=== PATIENT | male | born 1960 | race Caucasian/White ===

== ENCOUNTER 2017-09-20 08:32 | Day surgery (SDC) | payer BC ==
[~2017-09-20] VITALS: Ht 182.9 cm; Wt 104.3 kg
[~2017-09-20 08:32] MED LIST: ADLT ASA LOW81 MG PO; ALTOPREV20 MG PO; ANTIVERT PO; ASPIRIN LOW81 M1 PO; AUGMENTIN875TAB PO; BABY ASPIRIN81 MG OR; CIPROFLOXACN500 MG PO; FLUTICASONE50 MCG; HYDROCODONE/ACE1 TA7 PO; HYDROCODONE/ACE1 TAB PO; LOSARTAN POT50 MG PO; MECLIZINE25 MG PO; METO50TA52 PO; METOPROLOL50 M1 PO; PHENERGAN25 MG/TAB PO; PREDNISONE10 MG PO; ROCEPHIN 1 GM1 GM; SODIUM CHLORIDE; TAM75CAP PO; TAMSULOSIN HCL0.4 MG PO; TESTOST CYP200 MG/ML IM; VALTREX1 GM PO; ZOFRAN ODT4 MG OR
[2017-09-20 11:12] VITALS: BP 119/85
== END 2017-09-20 11:25 | disposition home or self-care (01) | DRG 951 ==
LOC: ENDO 08:32
PROVIDERS: ATTEND Surgery
PROC: 0DJD8ZZ Inspection of Lower Intestinal Tract, Via Natural or Artificial Opening Endoscopic (ICD-10-PCS; principal; 2017-09-20)
DX: Z12.11 Encounter for screening for malignant neoplasm of colon (principal); I10 Essential (primary) hypertension; K64.8 Other hemorrhoids

== ENCOUNTER 2019-02-10 19:56 | Observation (INO) | payer BC ==
[~2019-02-10] VITALS: Ht 182.9 cm; Wt 107.5 kg
--- NOTE | 2019-02-10 20:21 | NUR ---
BY WC TO ROOM
--- NOTE | 2019-02-10 20:22 | NUR ---
PT. WITH C/O RIGHT FLANK PAIN AND RIGHT LQ PAIN STARTING APPROX. 1900 TONIGHT. PT. STATES HE HAS A PMH OF KIDNEY STONES.
[2019-02-10 20:49] LABS: HEMATOCRIT 46.6 % (39.0-50.0); HEMOGLOBIN 15.3 g/dl (14.0-18.0); IMMATURE GRANULOCYTES 0.5 % (0.0-5.0); MEAN CORPUSCULAR HGB 32.8 pG CALC (26.0-32.0); MEAN CORPUSCULAR HGB CONC 32.8 g/L CALC (32.0-36.0); NEUT# 5.71 thou/uL (1.82-7.42); RED BLOOD COUNT 4.67 mill/uL (4.70-6.10); RED CELL DISTRI WIDTH 12.4 % (11.5-15.5)
--- NOTE | 2019-02-10 20:49 | NUR ---
IVF, IV PAIN MED AND IV ANTIEMETIC GIVEN PER MD ORDER.
[2019-02-10 20:51] LABS: MEAN CELL VOLUME 99.8 fL CALC (80.0-100.0)
[2019-02-10 21:04] LABS: URINE BILIRUBIN - DIPSTICK NEGATIVE (NEGATIVE); URINE BLOOD DIPSTICK LARGE (NEGATIVE); URINE COLOR YELLOW; URINE GLUCOSE - DIPSTICK NEGATIVE (NEGATIVE); URINE KETONE NEGATIVE (NEGATIVE); URINE LEUK ESTERASE NEGATIVE (NEGATIVE); URINE NITRITE - DIPSTICK NEGATIVE (Negative); URINE PH 5.5 (4.5-8.0); URINE PROTEIN - DIPSTICK NEGATIVE (NEG-TRACE); URINE SPECIFIC GRAVITY 1.025; URINE UROBILINOGEN - DIPSTICK 0.2 E.U./dL (0.2)
[2019-02-10 21:17] LABS: URINE RBC TNTC RBC/hpf (0-5); URINE SQUAMOUS EPITHELIAL CELL FEW EPI/hpf (0-FEW)
--- NOTE | 2019-02-10 21:25 | NUR ---
PT. STATES HIS PAIN IS NOW DECREASED TO A 4 ON A SCALE OF 1-10.
[2019-02-10 21:28] LABS: ALKALINE PHOSPHATASE 71 u/l (38-126); AMYLASE 117 u/l (30-110); ANION GAP 15 (6-22 (CALC)); BILIRUBIN, TOTAL 0.6 mg/dL (0.0-1.4); BUN 25 mg/dL (9-20); BUN/CREATININE RATIO 18 (12-20 (CALC)); CARBON DIOXIDE 26 mmol/l (22-30); CHLORIDE 106 mmol/l (95-108); CREATININE 1.4 mg/dL (0.7-1.3); GFR 52 ML/MIN (>=60 (CALC)); GFR FOR AFR.AMER. > 60 ML/MIN (>=60 (CALC)); LIPASE 326 u/l (23-300); SGOT/AST 29 u/l (17-59); SODIUM 142 mmol/l (137-146); TOTAL PROTEIN 7.8 g/dL (6.3-8.2)
[2019-02-10] MEDS ORDERED: GABAPENTIN100 MG PO (21:28)
[2019-02-10 21:30] LABS: ALBUMIN 4.6 g/dL (3.2-5.0)
--- NOTE | 2019-02-10 22:37 | NUR ---
MD IN ROOM TO DISCUSS CLINICAL FINDINGS WITH PT. AND ALSO TO MAKE HIM AWARE OF ADMISSION, VERBALIZED UNDERSTANDING.
--- NOTE | 2019-02-10 22:49 | NUR ---
IV PAIN MED GIVEN PER MD ORDER.
--- NOTE | 2019-02-10 23:02 | NUR ---
PT. STATES HIS PAIN HAS NOW DECREASED TO A 3 ON A SCALE OF 1-10.
--- NOTE | 2019-02-10 23:14 | NUR ---
PT. BP 139/97 MD AWARE.
--- NOTE | 2019-02-10 23:41 | NUR ---
REPORT TO TROY SALAZAR.
--- NOTE | 2019-02-10 23:45 | NUR ---
TROY DOING BEDSIDE ADMISSION. REPORT GIVEN.
[2019-02-10 23:57] VITALS: BP 132/92
--- NOTE | 2019-02-11 | NUR ---
ARRIVED TO THE FLOOR VIA STRECTHER ACCOMPANIED BY AND MARTIN SIMMONS. ADMISSION ASSESSMENT COMPLETED BY MARTIN SIMMONS. PT. A/A/O AND ABLE TO VERBALIZE NEEDS; UPDATED ON POC AND VERBALIZES UNDERSTANDING. IV SITE PATENT AND INFUSING ORDERED IVF WELL. PT. REPORTS OCCASIONAL ALCOHOL CONSUMPTION, NOT DAILY, BUT APPROXIMATELY 6 PACK A WEEK. REPORTS INTERMITTENT RLQ PAIN AND EDUCATED ON PRN MORPHINE ORDERS AND VERBALIZES UNDERSTANDING. EDUCATED ON USE OF CALL LIGHT AND ROOM. ENCOURAGED TO CALL FOR ANY NEEDS. CALL LIGHT IS IN REACH. WILL CONTINUE TO MONITOR.
--- NOTE | 2019-02-11 00:04 | NUR ---
PT[place] [facility] [place] NO [place]
--- NOTE | 2019-02-11 02:36 | NUR ---
PT. C/O RIGHT FLANK PAIN AND NAUSEA; MEDICATED WITH ORDERED PRN PEPCID,ZOFRAN, AND MORPHINE; WILL REASSESS. EMESIS BAG PROVIDED. DENIES FURTHER NEEDS. CALL LIGHT IS IN REACH.
[2019-02-11 03:11] LABS: HEMATOCRIT 42.1 % (39.0-50.0); HEMOGLOBIN 14.1 g/dl (14.0-18.0); IMMATURE GRANULOCYTES 0.4 % (0.0-5.0); MEAN CELL VOLUME 99.8 fL CALC (80.0-100.0); MEAN CORPUSCULAR HGB 33.4 pG CALC (26.0-32.0); MEAN CORPUSCULAR HGB CONC 33.5 g/L CALC (32.0-36.0); NEUT# 5.34 thou/uL (1.82-7.42); RED BLOOD COUNT 4.22 mill/uL (4.70-6.10); RED CELL DISTRI WIDTH 12.4 % (11.5-15.5)
[2019-02-11 03:24] VITALS: BP 126/87
--- NOTE | 2019-02-11 03:24 | NUR ---
REASSESSED PAIN AND NOW DOWN TO A 3/10;VSS; DENIES NEEDS.VOICES NO CONCERNS. CALL LIGHT IS IN REACH. WILL CONTINUE TO MONITOR.
[2019-02-11 03:34] LABS: ALBUMIN 3.9 g/dL (3.2-5.0); ALKALINE PHOSPHATASE 77 u/l (38-126); ANION GAP 13 (6-22 (CALC)); BILIRUBIN, TOTAL 0.5 mg/dL (0.0-1.4); BUN 22 mg/dL (9-20); BUN/CREATININE RATIO 18 (12-20 (CALC)); CARBON DIOXIDE 25 mmol/l (22-30); CHLORIDE 106 mmol/l (95-108); CREATININE 1.2 mg/dL (0.7-1.3); GFR > 60 ML/MIN (>=60 (CALC)); GFR FOR AFR.AMER. > 60 ML/MIN (>=60 (CALC)); POTASSIUM 4.4 mmol/l (3.5-5.1); SGOT/AST 24 u/l (17-59); SODIUM 140 mmol/l (137-146); TOTAL PROTEIN 6.7 g/dL (6.3-8.2)
--- NOTE | 2019-02-11 06:39 | NUR ---
C/O RIGHT SIDED ABD PAIN 4/10 AND MEDICATED WITH ORDERED PRN MORPHINE. CALL LIGHT IS IN REACH.
[2019-02-11 08:05] VITALS: BP 121/83
--- NOTE | 2019-02-11 08:15 | NUR ---
ASSESSMENT DONE. PT IS A&O X3. IVF INFUSING WELL. PT NPO. PT STATED PAIN IN ABD 08/01 BUT DENIES PAIN MEDICATION AT THIS TIME. PT DENIES ANY NEEDS AT THIS TIME. CALL LIGHT IN REACH.
[2019-02-11 10:58] LABS: MAGNESIUM 1.9 mg/dL (1.6-2.3)
--- NOTE | 2019-02-11 11:07 | NUR ---
MEDICATED PT WITH MORPHINE FOR PAIN IN ABD SEE EMAR. IN ROOM. PT DENIES ANY OTHER NEEDS AT THIS TIME. CALL LIGHT IN REACH.
--- NOTE | 2019-02-11 15:48 | NUR ---
PT IS SITTING IN THE SIDE OF THE BED. IN ROOM. PT STATED PAIN IN ABD. MEDICATTED PT WITH MORPHINE SEE EMAR. PT STATED EARLIER HE WAS SWEATING A LOT. TOLD PT IF IT HAPPENS AGAIN TO LET ME KNOW. PT DENIES ANY OTHER NEEDS AT THIS TIME. MANAS LIGHT IN REACH.
[2019-02-11 16:40] VITALS: BP 119/79
--- NOTE | 2019-02-11 18:51 | NUR ---
PT C/O NAUSEA , VOMITED THE CHICKEN BROTH. FROM SUPPER . GAVE NAUSEA MEDICATION ORDERED BY DR MOORE.
--- NOTE | 2019-02-11 19:15 | NUR ---
REPORT RECEIVED FROM MARTIN DELEON. PT RESTING IN BED. NO S/S OF DISTRESS AT THIS TIME. WILL CONTINUE TO MONITOR.
[2019-02-11 19:25] VITALS: BP 131/87
--- NOTE | 2019-02-11 20:32 | NUR ---
PT RESTING IN BED, ALERT AND ORIENTED. RES[PIRATIONS EVEN AND UNLABORED ON RA, LUNGS SOUND CLEAR. PEDAL PULSES STRONG. PT REPORTS PAIN OF A 4/10 DENIES WANTING ANYTHING FOR PAIN AT THIS TIME. SAFETY PRECAUTIONS IN PLACE. WILL CONTINUE TO MONITOR.
--- NOTE | 2019-02-12 00:56 | NUR ---
PT RESTING IN BED. NO S/S OF DISTRESS AT THIS TIME. SAFETY PRECAUTIONS IN PLACE. WILL CONTINUE TO MONITOR.
[2019-02-12 04:48] VITALS: BP 140/93
--- NOTE | 2019-02-12 04:49 | NUR ---
PT RESTING IN BED NO S/S OF DISTRESS AT THIS TIME. SAFETY PRECAUTIONS IN PLACE. WILL CONTINUE TO MONITOR.
[2019-02-12 07:23] VITALS: BP 131/91
--- NOTE | 2019-02-12 08:20 | NUR ---
PT IS SITTING IN THE SIDE OF THE BED. PT IS A&O X3 . PT STATED PAIN IN ABD 08/31. PT STATED HE VOMITED IN THE BATHROOM. TOLD PT MEDICATION IS NOT DUE YET. PT VERBALIZED UNDERSTANDING. IVF INFUSING WELL. PT STATED LATER FOR A SHOWER. PT DENIES ANY OTHER NEEDS AT THIS TIME. CALL LIGHT IN REACH.
--- NOTE | 2019-02-12 10:43 | NUR ---
PT IS SITTING IN THE SIDE OF THE BED. PT STATED PAIN MEDICATION NOT HELPING. CALL LIGHT IN REACH. NOTIFIED CELIA BAUMANN.
--- NOTE | 2019-02-12 11:31 | NUR ---
HAD MEDICATED PT WITH TORADOL FOR PAIN IN ABD. PT IS SITTING IN THE SIDE OF THE BED. PT STILL FEELS NAUSEA. MEDICATED PT WITH ZOFRAN. PT DENIES ANY OTHER NEEDS AT THIS TIME. CALL LIGHT IN REACH.
--- NOTE | 2019-02-12 15:19 | NUR ---
PT IS SITTING IN THE SIDE OF THE BED. PT STATED PAIN IN ABD 08/31. MEDICATED PT WITH LORTAB SEE EMAR. IN ROOM. PT DENIES ANY OTHER NEEDS AT THIS TIME. CALL LIGHT IN REACH.
[2019-02-12 15:25] VITALS: BP 133/91
[2019-02-12 19:15] VITALS: BP 140/93
--- NOTE | 2019-02-12 20:00 | NUR ---
PT ASSESSMENT COMPLETED, URINAL EMPTIED OF 400CC CLEAR YELLOW URINE. PT MEDICATED FOR PAIN 5/10 ON PAIN SCALE REPORTED TO RIGHT FLANK SIDE.
--- NOTE | 2019-02-13 00:17 | NUR ---
PT MEDICATED FOR PAIN 4/10 ON PAIN SCALE REPORTED IN THE RIGHT FLANK SIDE. DENIES ANY OTHER NEEDS AT THIS TIME/OTHER THAN GINGERALE/PROVIDED. NO S/O DISTRESS NOTED. CALL LIGHT AT SIDE AND PT ENCOURAGED TO CALL.
--- NOTE | 2019-02-13 00:18 | NUR ---
PT MEDICATED FOR PAIN 4-5/10 ON PAIN SCALE LOCATED IN RIGHT SIDE/FLANK. PROVIDED GINGERALE REQUESTED. PT DENIES NAUSEA OR ANY OTHER NEEDS AT THIS TIME.
[2019-02-13 03:48] VITALS: BP 151/94
[2019-02-13 05:02] LABS: HEMATOCRIT 42.4 % (39.0-50.0); HEMOGLOBIN 13.5 g/dl (14.0-18.0); IMMATURE GRANULOCYTES 0.5 % (0.0-5.0); MEAN CELL VOLUME 102.4 fL CALC (80.0-100.0); MEAN CORPUSCULAR HGB 32.6 pG CALC (26.0-32.0); MEAN CORPUSCULAR HGB CONC 31.8 g/L CALC (32.0-36.0); NEUT# 3.97 thou/uL (1.82-7.42); RED BLOOD COUNT 4.14 mill/uL (4.70-6.10); RED CELL DISTRI WIDTH 12.4 % (11.5-15.5)
[2019-02-13 05:22] LABS: ANION GAP 11 (6-22 (CALC)); BUN 15 mg/dL (9-20); BUN/CREATININE RATIO 11 (12-20 (CALC)); CARBON DIOXIDE 28 mmol/l (22-30); CHLORIDE 105 mmol/l (95-108); CREATININE 1.3 mg/dL (0.7-1.3); GFR 57 ML/MIN (>=60 (CALC)); GFR FOR AFR.AMER. > 60 ML/MIN (>=60 (CALC)); POTASSIUM 4.7 mmol/l (3.5-5.1); SODIUM 139 mmol/l (137-146)
--- NOTE | 2019-02-13 05:45 | NUR ---
PT MEDICATED ORDERS PROVIDE AND FOR PAIN 4-5/10 ON PAIN SCALE REPORTEDLY IN R.FLANK SIDE. PT DENIES ANY OTHER NEEDS AT THIS TIME. POC DISCUSSED/QUESTIONS RE: MEDS/MEAL SCHEDULE. ENCOURAGED PT TO CALL NEEDS ARISE.
--- NOTE | 2019-02-13 07:08 | NUR ---
REPORT RECEIVED FROM MARTIN THOMSON. PT SITTING ON THE SIDE OF THE BED. NO S/S OF DISTRESS AT THIS TIME. WILL CONTIUE TO MONITOR.
[2019-02-13 07:58] VITALS: BP 150/96
--- NOTE | 2019-02-13 08:11 | NUR ---
PT SITTING ON THE SIDE OF THE BED, ALERT AND ORIENTED. RESPIRATIONS EVEN AND UNLABORED ON RA. LUNGS SOUND CLEAR. PEDAL PULSES STRONG. #20 LAC PATENT AND APPEARS HEALTHY. NO S/S OF DISTRESS AT THIS TIME. SAFETY PRECAUTIONS IN PLACE. WILL CONTINUE TO MONITOR.
--- NOTE | 2019-02-13 09:40 | NUR ---
MD AT BEDSIDE DISCUSSING PLAN OF CARE
[2019-02-13 10:13] LABS: URINE BILIRUBIN - DIPSTICK NEGATIVE (NEGATIVE); URINE BLOOD DIPSTICK LARGE (NEGATIVE); URINE COLOR YELLOW; URINE GLUCOSE - DIPSTICK NEGATIVE (NEGATIVE); URINE KETONE NEGATIVE (NEGATIVE); URINE LEUK ESTERASE NEGATIVE (NEGATIVE); URINE NITRITE - DIPSTICK NEGATIVE (Negative); URINE PROTEIN - DIPSTICK NEGATIVE (NEG-TRACE); URINE UROBILINOGEN - DIPSTICK 0.2 E.U./dL (0.2)
[2019-02-13 10:36] LABS: URINE RBC 25-50 RBC/hpf (0-5); URINE WBC 0-2 WBC/hpf (0-5)
--- NOTE | 2019-02-13 12:45 | NUR ---
PT RESTING IN BED NO S/S OF DISTRESS AT THIS TIME. CALL MOORE WITHIN REACH. WILL CONTINUE TO MONITOR.
[2019-02-13 15:49] VITALS: BP 141/90
--- NOTE | 2019-02-13 16:11 | NUR ---
PT RESTING IN BED. RESPIRATIONS EVEN AND UNLABORED ON RA. NO S/S OF DISTRESS. SAFETY PRECAUTIONS IN PLACE. WILL CONTINUE TO MONITOR.
[2019-02-13 19:00] VITALS: BP 139/90
--- NOTE | 2019-02-13 20:47 | NUR ---
ASSESSMENT COMPLETED. IV SITE PATENT AND INFUSING ORDERED IVF WELL. DENIES PAIN AT THIS TIME. ASKS THIS [employer] FOR [employer] AND [employer] WILL PROVIDE. REPORTS STILL NO BM. WILL CONTINUE TO MONITOR. ENCOURAGED TO CALL FOR ANY NEEDS. CALL LIGHT IS IN REACH.
--- NOTE | 2019-02-13 23:30 | NUR ---
PT. MEDICATED FOR RIGHT FLANK PAIN 5/10 WITH ORDERED PRN LORTAB; WILL REASSESS. SNACK PROVIDED ALONG WITH PRUNE JUICE TO ASSIST WITH BM. PT. REPORTS A SMALL BM POST LAXATIVE. URINAL EMPTIED. CALL LIGHT IS IN REACH.
--- NOTE | 2019-02-14 01:55 | NUR ---
PT. SITTING UP IN BED SNORING; NO DISTRESS NOTED; RESP. EVEN AND UNLABORED. CALL LIGHT IS IN REACH.
[2019-02-14 04:26] VITALS: BP 156/94
--- NOTE | 2019-02-14 04:28 | NUR ---
PT. SITTING UP IN BED WATCHING TV; REPORTING 3 MORE BM'S THIS AM; NO DISTRESS NOTED;VS OBTAINED. DENIES NEEDS. URINAL EMPTIED. CALL LIGHT IS IN REACH; WILL CONTINUE TO MONITOR.
[2019-02-14 04:59] LABS: HEMATOCRIT 40.3 % (39.0-50.0); IMMATURE GRANULOCYTES 0.3 % (0.0-5.0); MEAN CORPUSCULAR HGB 32.6 pG CALC (26.0-32.0); MEAN CORPUSCULAR HGB CONC 32.3 g/L CALC (32.0-36.0); NEUT# 3.74 thou/uL (1.82-7.42); RED BLOOD COUNT 3.99 mill/uL (4.70-6.10); RED CELL DISTRI WIDTH 12.2 % (11.5-15.5)
[2019-02-14 05:20] LABS: ANION GAP 12 (6-22 (CALC)); BUN 14 mg/dL (9-20); BUN/CREATININE RATIO 11 (12-20 (CALC)); CARBON DIOXIDE 29 mmol/l (22-30); CHLORIDE 104 mmol/l (95-108); CREATININE 1.3 mg/dL (0.7-1.3); GFR 57 ML/MIN (>=60 (CALC)); GFR FOR AFR.AMER. > 60 ML/MIN (>=60 (CALC)); POTASSIUM 4.7 mmol/l (3.5-5.1); SODIUM 139 mmol/l (137-146)
--- NOTE | 2019-02-14 05:44 | NUR ---
PT. SITTING UP IN BED WATCHING TV. DENIES NEEDS/PAIN. PO FLUIDS OFFERED. PT. TOLERATED PO FLUIDS AND CRACKERS THROUGHOUT THE NIGHT. ENCOURAGED TO CALL FOR ANY NEEDS. URINAL EMPTIED. CALL LIGHT IS IN REACH.
[2019-02-14 08:00] VITALS: BP 154/96
--- NOTE | 2019-02-14 08:00 | NUR ---
PT SITTING UP ON SIDE OF BED EATING BREAKFAST. PT WITH COMPLAINTS OF NAUSEA. PT IS ALERT AND ORIENTED X3. SHIFT ASSESSMENT COMPLETED AT THIS TIME. IV PATENT X1. MEDICATED PER MAR FOR NAUSEA. WILL CONTINUE TO MONITOR.
[2019-02-14 08:06] VITALS: BP 154/96
--- NOTE | 2019-02-14 11:12 | NUR ---
DR HICKS AND HEMANT YANG AT BEDSIDE AT THIS TIME
[2019-02-14] MEDS ORDERED: DICYCLOMINE20 MG PO (11:16)
[2019-02-14] MEDS ORDERED: KEFLEX500 MG PO (11:16)
[2019-02-14] MEDS ORDERED: LORTAB5 PO (11:16)
[2019-02-14] MEDS ORDERED: SYNTHROID25 MCG PO (11:16)
[2019-02-14] MEDS ORDERED: PROTONIX40 M3 IV (11:16)
[2019-02-14] MEDS ORDERED: ZOFRAN4 MG/TAB PO (11:20)
--- NOTE | 2019-02-14 12:00 | NUR ---
PT SITTING UP IN CHAIR AT SIDE OF BED RESP ARE EVEN AND UNLABORED. NO DISTRESS NOTED. CALL LIGHT IN REACH. WILL CONTINUE TO MONITOR.
--- NOTE | 2019-02-14 13:00 | NUR ---
IV site discontinued, cath intact. No edema , no redness, voices no discomfort.
--- NOTE | 2019-02-14 13:35 | NUR ---
DISCHARGE INSTRUCTIONS REVIEWED WITH PATIENT. PT VERBALIZED UNDERSTANDING. WORK NOTE GIVEN PER PATIENT REQUEST.
[2019-02-14] MEDS ORDERED: PROTONIX40 M2 PO (13:43)
--- NOTE | 2019-02-14 13:54 | NUR ---
Discharge instructions given. Patient verbalizes understanding of same. Discharged in stable condition via Wheelchair to Home with family. All belongings sent with pt.
== END 2019-02-14 13:54 | disposition home or self-care (01) | DRG 391 ==
LOC: ED 19:56 → ED-I 20:57 → ED 22:51 → MS2 22:52
PROVIDERS: Emergency Medicine; Nurse Practitioner Family; ADMIT Internal Medicine; ATTEND Internal Medicine
DX: R10.9 Unspecified abdominal pain (principal); M54.5 Low back pain; R11.2 Nausea with vomiting, unspecified; R31.9 Hematuria, unspecified; N17.9 Acute kidney failure, unspecified; K85.90 Acute pancreatitis without necrosis or infection, unspecified; I12.9 Hypertensive chronic kidney disease with stage 1 through stage 4 chronic kidney disease, or unspecified chronic kidney disease; N18.3 Chronic kidney disease, stage 3 (moderate); Z87.891 Personal history of nicotine dependence; E78.5 Hyperlipidemia, unspecified; N40.0 Benign prostatic hyperplasia without lower urinary tract symptoms; E03.9 Hypothyroidism, unspecified; Z87.442 Personal history of urinary calculi
CPT/HCPCS: G0378; J1650; S0164

== ENCOUNTER 2020-06-30 10:26 | Inpatient (IN) | payer BC ==
[~2020-06-30] VITALS: Ht 182.9 cm; Wt 101.3 kg
[~2020-06-30 10:26] MED LIST changes: +DICYCLOMINE20 MG PO; +GABAPENTIN100 MG PO; +KEFLEX500 MG PO; +LORTAB5 PO; +PROTONIX40 M2 PO; +PROTONIX40 M3 IV; +SYNTHROID25 MCG PO; +ZOFRAN4 MG/TAB PO
[2020-06-30 10:59] LABS: IMMATURE GRANULOCYTES 0.4 % (0.0-5.0); MEAN CORPUSCULAR HGB 30.9 pG CALC (26.0-32.0); MEAN CORPUSCULAR HGB CONC 32.7 g/dL CAL (32.0-36.0); NEUT# 5.51 thou/uL (1.82-7.42); RED BLOOD COUNT 5.01 mill/uL (4.70-6.10); RED CELL DISTRI WIDTH 12.9 % (11.5-15.5)
[2020-06-30 11:06] LABS: HEMATOCRIT 47.4 % (39.0-50.0); HEMOGLOBIN 15.5 g/dl (14.0-18.0); MEAN CELL VOLUME 94.6 fL CALC (80.0-100.0)
[2020-06-30 11:17] LABS: ALKALINE PHOSPHATASE 67 u/l (38-126); ANION GAP 16 (6-22 (CALC)); BUN 18 mg/dL (9-20); BUN/CREATININE RATIO 13 (12-20 (CALC)); CARBON DIOXIDE 29 mmol/l (22-30); CHLORIDE 95 mmol/l (95-108); CREATININE 1.4 mg/dL (0.7-1.3); GFR 52 ML/MIN (>=60 (CALC)); GFR FOR AFR.AMER. > 60 ML/MIN (>=60 (CALC)); POTASSIUM 3.9 mmol/l (3.5-5.1); SGOT/AST 34 u/l (17-59); SODIUM 136 mmol/l (137-146)
[2020-06-30 11:20] LABS: ALBUMIN 4.7 g/dL (3.2-5.0); BILIRUBIN, TOTAL 0.9 mg/dL (0.0-1.4); TOTAL PROTEIN 8.3 g/dL (6.3-8.2)
[2020-06-30] MEDS ORDERED: MEDDOSEPAK PO (14:08)
[2020-06-30] MEDS ORDERED: ZITHROMAX Z-PA250 MG PO (14:09)
[2020-06-30] MEDS ORDERED: ONDANSETRON4 MG PO (14:09)
[2020-06-30] MEDS ORDERED: FINASTERIDE5 MG PO (14:09)
[2020-06-30 14:45] VITALS: BP 116/76
[2020-06-30 19:00] VITALS: BP 107/69
[2020-07-01] VITALS: BP 123/72
[2020-07-01 04:00] VITALS: BP 118/75
[2020-07-01 05:13] LABS: HEMATOCRIT 42.3 % (39.0-50.0); HEMOGLOBIN 14.1 g/dl (14.0-18.0); IMMATURE GRANULOCYTES 0.5 % (0.0-5.0); MEAN CELL VOLUME 94.2 fL CALC (80.0-100.0); MEAN CORPUSCULAR HGB 31.4 pG CALC (26.0-32.0); MEAN CORPUSCULAR HGB CONC 33.3 g/dL CAL (32.0-36.0); NEUT# 6.01 thou/uL (1.82-7.42); RED BLOOD COUNT 4.49 mill/uL (4.70-6.10); RED CELL DISTRI WIDTH 12.5 % (11.5-15.5)
[2020-07-01 05:49] LABS: ALKALINE PHOSPHATASE 54 u/l (38-126); BILIRUBIN, TOTAL 0.9 mg/dL (0.0-1.4); BUN 18 mg/dL (9-20); BUN/CREATININE RATIO 16 (12-20 (CALC)); C-REACTIVE PROTEIN 5.8 mg/dL (0-0.9); CHLORIDE 102 mmol/l (95-108); CREATININE 1.2 mg/dL (0.7-1.3); GFR > 60 ML/MIN (>=60 (CALC)); GFR FOR AFR.AMER. > 60 ML/MIN (>=60 (CALC)); POTASSIUM 4.1 mmol/l (3.5-5.1); SGOT/AST 30 u/l (17-59); SODIUM 136 mmol/l (137-146); TOTAL PROTEIN 6.7 g/dL (6.3-8.2)
[2020-07-01 05:52] LABS: ALBUMIN 3.7 g/dL (3.2-5.0); ANION GAP 15 (6-22 (CALC)); CARBON DIOXIDE 23 mmol/l (22-30)
[2020-07-01 07:48] VITALS: BP 136/88
[2020-07-01 10:31] VITALS: BP 130/81
[2020-07-01 15:24] VITALS: BP 102/70
[2020-07-01 19:00] VITALS: BP 118/70
[2020-07-02] VITALS (7 sets, daily range): BP systolic 103–139; BP diastolic 62–84
[2020-07-02 06:08] LABS: HEMATOCRIT 39.1 % (39.0-50.0); HEMOGLOBIN 12.8 g/dl (14.0-18.0); MEAN CELL VOLUME 95.6 fL CALC (80.0-100.0); MEAN CORPUSCULAR HGB 31.3 pG CALC (26.0-32.0); MEAN CORPUSCULAR HGB CONC 32.7 g/dL CAL (32.0-36.0); RED BLOOD COUNT 4.09 mill/uL (4.70-6.10); RED CELL DISTRI WIDTH 12.7 % (11.5-15.5)
[2020-07-02 06:29] LABS: ANION GAP 10 (6-22 (CALC)); BUN 18 mg/dL (9-20); BUN/CREATININE RATIO 16 (12-20 (CALC)); CHLORIDE 105 mmol/l (95-108); CREATININE 1.1 mg/dL (0.7-1.3); GFR > 60 ML/MIN (>=60 (CALC)); GFR FOR AFR.AMER. > 60 ML/MIN (>=60 (CALC)); MAGNESIUM 2.3 mg/dL (1.6-2.3); POTASSIUM 4.8 mmol/l (3.5-5.1); SODIUM 138 mmol/l (137-146)
[2020-07-02 06:43] LABS: CARBON DIOXIDE 28 mmol/l (22-30)
[2020-07-03] VITALS: BP 106/64
[2020-07-03 04:00] VITALS: BP 114/71
[2020-07-03 05:12] LABS: HEMATOCRIT 40.9 % (39.0-50.0); HEMOGLOBIN 13.2 g/dl (14.0-18.0); IMMATURE GRANULOCYTES 1.3 % (0.0-5.0); MEAN CELL VOLUME 96.2 fL CALC (80.0-100.0); MEAN CORPUSCULAR HGB 31.1 pG CALC (26.0-32.0); MEAN CORPUSCULAR HGB CONC 32.3 g/dL CAL (32.0-36.0); NEUT# 3.93 thou/uL (1.82-7.42); RED BLOOD COUNT 4.25 mill/uL (4.70-6.10); RED CELL DISTRI WIDTH 12.7 % (11.5-15.5)
[2020-07-03 05:41] LABS: ALBUMIN 3.3 g/dL (3.2-5.0); ALKALINE PHOSPHATASE 44 u/l (38-126); ANION GAP 7 (6-22 (CALC)); BILIRUBIN, TOTAL 0.6 mg/dL (0.0-1.4); BUN 18 mg/dL (9-20); BUN/CREATININE RATIO 16 (12-20 (CALC)); CARBON DIOXIDE 32 mmol/l (22-30); CHLORIDE 104 mmol/l (95-108); CREATININE 1.1 mg/dL (0.7-1.3); GFR > 60 ML/MIN (>=60 (CALC)); GFR FOR AFR.AMER. > 60 ML/MIN (>=60 (CALC)); POTASSIUM 4.3 mmol/l (3.5-5.1); SGOT/AST 31 u/l (17-59); SODIUM 138 mmol/l (137-146); TOTAL PROTEIN 6.3 g/dL (6.3-8.2)
[2020-07-03 08:00] VITALS: BP 122/87
[2020-07-03 10:30] VITALS: BP 97/54
[2020-07-03 15:00] VITALS: BP 107/68
[2020-07-03 20:00] VITALS: BP 122/74
[2020-07-04] VITALS (7 sets, daily range): BP systolic 101–131; BP diastolic 59–87
[2020-07-04 05:30] LABS: HEMATOCRIT 40.4 % (39.0-50.0); HEMOGLOBIN 13.1 g/dl (14.0-18.0); MEAN CELL VOLUME 95.7 fL CALC (80.0-100.0); MEAN CORPUSCULAR HGB CONC 32.4 g/dL CAL (32.0-36.0); RED BLOOD COUNT 4.22 mill/uL (4.70-6.10); RED CELL DISTRI WIDTH 12.7 % (11.5-15.5)
[2020-07-04 05:57] LABS: ANION GAP 10 (6-22 (CALC)); BUN 19 mg/dL (9-20); BUN/CREATININE RATIO 16 (12-20 (CALC)); CARBON DIOXIDE 28 mmol/l (22-30); CHLORIDE 102 mmol/l (95-108); CREATININE 1.2 mg/dL (0.7-1.3); GFR > 60 ML/MIN (>=60 (CALC)); GFR FOR AFR.AMER. > 60 ML/MIN (>=60 (CALC)); POTASSIUM 4.6 mmol/l (3.5-5.1); SODIUM 136 mmol/l (137-146)
[2020-07-05 04:00] VITALS: BP 149/87
[2020-07-05 06:08] LABS: HEMATOCRIT 41.9 % (39.0-50.0); HEMOGLOBIN 13.6 g/dl (14.0-18.0); IMMATURE GRANULOCYTES 2.3 % (0.0-5.0); MEAN CELL VOLUME 95.7 fL CALC (80.0-100.0); MEAN CORPUSCULAR HGB 31.1 pG CALC (26.0-32.0); MEAN CORPUSCULAR HGB CONC 32.5 g/dL CAL (32.0-36.0); NEUT# 7.87 thou/uL (1.82-7.42); RED BLOOD COUNT 4.38 mill/uL (4.70-6.10); RED CELL DISTRI WIDTH 12.7 % (11.5-15.5)
[2020-07-05 06:29] LABS: ALBUMIN 3.4 g/dL (3.2-5.0); ALKALINE PHOSPHATASE 42 u/l (38-126); ANION GAP 10 (6-22 (CALC)); BILIRUBIN, TOTAL 0.6 mg/dL (0.0-1.4); BUN 22 mg/dL (9-20); BUN/CREATININE RATIO 18 (12-20 (CALC)); C-REACTIVE PROTEIN 0.9 mg/dL (0-0.9); CARBON DIOXIDE 30 mmol/l (22-30); CHLORIDE 101 mmol/l (95-108); CREATININE 1.2 mg/dL (0.7-1.3); GFR > 60 ML/MIN (>=60 (CALC)); GFR FOR AFR.AMER. > 60 ML/MIN (>=60 (CALC)); POTASSIUM 4.8 mmol/l (3.5-5.1); SGOT/AST 27 u/l (17-59); SODIUM 136 mmol/l (137-146); TOTAL PROTEIN 6.3 g/dL (6.3-8.2)
[2020-07-05 07:46] VITALS: BP 121/78
[2020-07-05 11:37] VITALS: BP 95/58
[2020-07-05 12:12] VITALS: BP 116/79
[2020-07-05 16:21] VITALS: BP 105/66
[2020-07-05 19:00] VITALS: BP 103/7; BP 103/71
[2020-07-06] VITALS: BP 117/73
[2020-07-06 04:00] VITALS: BP 121/77
[2020-07-06 05:23] LABS: HEMATOCRIT 42.9 % (39.0-50.0); IMMATURE GRANULOCYTES 4.9 % (0.0-5.0); MEAN CELL VOLUME 96.2 fL CALC (80.0-100.0); MEAN CORPUSCULAR HGB 31.4 pG CALC (26.0-32.0); MEAN CORPUSCULAR HGB CONC 32.6 g/dL CAL (32.0-36.0); NEUT# 8.77 thou/uL (1.82-7.42); RED BLOOD COUNT 4.46 mill/uL (4.70-6.10); RED CELL DISTRI WIDTH 12.9 % (11.5-15.5)
[2020-07-06 05:54] LABS: ANION GAP 12 (6-22 (CALC)); BUN 28 mg/dL (9-20); BUN/CREATININE RATIO 20 (12-20 (CALC)); CARBON DIOXIDE 28 mmol/l (22-30); CHLORIDE 102 mmol/l (95-108); CREATININE 1.4 mg/dL (0.7-1.3); GFR 52 ML/MIN (>=60 (CALC)); GFR FOR AFR.AMER. > 60 ML/MIN (>=60 (CALC)); POTASSIUM 4.9 mmol/l (3.5-5.1); SODIUM 137 mmol/l (137-146)
[2020-07-06 07:41] VITALS: BP 118/78
[2020-07-06 10:50] VITALS: BP 120/81
[2020-07-06] MEDS ORDERED: DEXAMETHASON6 MG PO (13:07)
[2020-07-06] MEDS ORDERED: ZITHROMAX250 MG PO (13:07)
[2020-07-06] MEDS ORDERED: ASPIRIN ADULT325 MG PO (13:07)
== END 2020-07-06 14:42 | disposition home or self-care (01) | DRG 177 ==
LOC: ED 10:26 → ED-I 12:28 → ED 12:43 → MS2 12:44
PROVIDERS: Emergency Medicine; Nurse Practitioner; Physician Assistant; ADMIT Internal Medicine; ATTEND Internal Medicine
PROC: XW033E5 Introduction of Remdesivir Anti-infective into Peripheral Vein, Percutaneous Approach, New Technology Group 5 (ICD-10-PCS; principal; 2020-06-30)
DX: U07.1 COVID-19 (principal); J12.82 Pneumonia due to coronavirus disease 2019; J96.01 Acute respiratory failure with hypoxia; R11.2 Nausea with vomiting, unspecified; R19.7 Diarrhea, unspecified; I12.9 Hypertensive chronic kidney disease with stage 1 through stage 4 chronic kidney disease, or unspecified chronic kidney disease; N18.30 Chronic kidney disease, stage 3 unspecified; E78.5 Hyperlipidemia, unspecified; N40.0 Benign prostatic hyperplasia without lower urinary tract symptoms; Z87.891 Personal history of nicotine dependence
CPT/HCPCS: J1650; Q9967